=== PATIENT | female | born 1945 | race Caucasian/White ===

== ENCOUNTER 2017-10-20 14:23 | Outpatient (CLI) | payer OTHER | END 2017-10-20 14:28 | disposition home or self-care (01) | LOC: SONOGRAMA 14:23 | DX: M75.101 Unspecified rotator cuff tear or rupture of right shoulder, not specified as traumatic (principal) ==

== ENCOUNTER 2017-10-20 14:34 | Outpatient (CLI) | payer OTHER | END 2017-10-20 14:36 | disposition home or self-care (01) | LOC: RAD 14:34 | DX: M50.90 Cervical disc disorder, unspecified, unspecified cervical region (principal) ==